=== PATIENT | male | born 1975 | race Two or more races ===

== ENCOUNTER 2023-08-09 14:00 | Emergency (ER) | payer OTHER ==
[~2023-08-09] VITALS: Ht 175.3 cm; Wt 80.0 kg
[2023-08-09 15:21] VITALS: BP 108/77; PULSE 77; RESP 18; TEMP 98.6; O2SAT 98
== END 2023-08-09 16:31 | disposition home or self-care (01) ==
LOC: ER 14:00
DX: S60.452A Superficial foreign body of right middle finger, initial encounter (principal); W22.8XXA Striking against or struck by other objects, initial encounter; Y93.89 Activity, other specified; Y92.89 Other specified places as the place of occurrence of the external cause; Y99.8 Other external cause status
CPT/HCPCS: 10120; 64450